=== PATIENT | female | born 1950 | race African-American/Black ===

== ENCOUNTER → 2016-11-15 | Outpatient (CLI) | payer OTHER ==
[~2016-11-15] MED LIST: ASPI81TA17 PO; ATOR20TA42 PO; FERR324T4 PO; FOSI20 PO; HYDR-2768 PO; LEVEMIR SQ; LEVO150T7 PO; NIFE1TAB86 PO; NOVOLOGP2 SQ
--- NOTE | 2016-11-15 09:47 | EKG ---
Date Performed: 11/15/2016 Time Performed: 07:40:32 PTAGE: 66 years EKG: Sinus rhythm . Inferior T wave changes are nonspecific Borderline ECG Compared to prior tracing no significant angeline nge PREVIOUS TRACING : 10/23/2013 06.55 DOCTOR: Fabio Luo Interpretating Date/Time 11/15/2016 09:46:53
== END ==
LOC: HCAV 07:32
PROVIDERS: ATTEND Hospitalist
DX: E11.9 Type 2 diabetes mellitus without complications (principal); I10 Essential (primary) hypertension
CPT/HCPCS: 93005